=== PATIENT | female | born 1960 | race Caucasian/White ===

== ENCOUNTER 2025-07-16 07:15 | Observation (INO) | payer MEDICARE, MEDICAID ==
[2025-07-08 15:48] LABS: MEAN PLATELET VOLUME 9.4 FL (7.4-10.4); PRE OP HEMATOCRIT 40.0 % (35.0-45.0); PRE OP HEMOGLOBIN 13.2 g/dL (12.0-16.0); PRE OP PLATELET COUNT 239 X10'3 (140-440); PRE OP WHITE BLOOD COUNT 8.5 10'3 (4.8-10.8); RED CELL DISTRIBUTION WIDTH 14.3 % (11.5-14.5)
[2025-07-08 16:05] LABS: CREATININE 1.29 MG/DL (0.40-0.90); PRE OP ALT 41 U/L (30-65); PRE OP ANION GAP 6 (8-16); PRE OP AST 36 U/L (10-37); PRE OP BILIRUB, TOTAL 0.3 MG/DL (0.0-1.0); PRE OP GLUCOSE 95 MG/DL (70-104); PRE OP POTASSIUM 4.3 MMOL/L (3.4-5.1); PRE OP SODIUM 141 MMOL/L (135-145); TOTAL CARBON DIOXIDE 31.7 MMOL/L (24-32); eGFR 41 ML/MIN
[~2025-07-16] VITALS: Ht 154.9 cm; Wt 110.9 kg
[2025-07-16] VITALS (22 sets, daily range): BP systolic 106–210; BP diastolic 42–113; PULSE 50–75; RESP 12–17; TEMP 97–97.8; O2SAT 96–100
[~2025-07-16 07:15] MED LIST: ALB0.5UD NEB; BUDE10.2 INH; ERGO500093 PO; MAGN400T29 PO; METF-900 PO; MONT-47 PO; OMEP40CA21 PO; PREG150C47 PO; ROSU20TA98 PO; VALS1TAB76 PO
[2025-07-16] MEDS: ringers solution, lacted 1,000 ML IV SCH (08:09)
[2025-07-16] MEDS: VANCOMYCIN/H2O 1.5g/300mL PB 300 ML IV ONE (08:10)
[2025-07-16] MEDS: ceFAZolin 2gm/dext,iso 50mL 50 ML IV ONE (08:10)
[2025-07-16] MEDS ORDERED: ROPIVAcaine 0.5% (5mg/ml) 30ml vial ONE ×2 (09:47→11:07)
[2025-07-16] MEDS ORDERED: PCA WASTE DOCUMENTATION 1 MG ML MC SCH (10:10)
[2025-07-16] MEDS ORDERED: magnesium hydroxide 30ml (MOM) UD suspension PO PRN (10:10)
[2025-07-16] MEDS ORDERED: bisacodyl 10mg suppository rectal RC PRN (10:10)
[2025-07-16] MEDS: potassium cl 20mEq in 1/2 NS 1,000 ML IV SCH (10:10)
[2025-07-16] MEDS ORDERED: Q4H PRN IH (10:15)
[2025-07-16] MEDS ORDERED: ALBUTEROL IH (10:15)
[2025-07-16] MEDS ORDERED: MIDAZolam 1 MG/ML 5ML VIAL ONE (10:46)
[2025-07-16] MEDS ORDERED: fentaNYL/PF 50MCG/1 ML 2ML syringe ONE (10:46)
[2025-07-16] MEDS ORDERED: propofol inj 20 ML IV ONE (11:07)
[2025-07-16] MEDS ORDERED: LIDOcaine 1%/PF 5ML 10 MG/ML VIAL ONE (11:07)
[2025-07-16] MEDS ORDERED: albuterol 2.5 MG/3 ML nebule NEB PRN (11:50)
--- NOTE | 2025-07-16 12:39 | ANESTHESIA RECORDS ---
Nerve Block Providers to CC ~ Diagnosis: Nerve Block requested by: STEVE BROWN MD Neuraxial/Peripheral Nerve Block requested for Post-operative analgesia by Physician above DIAGNOSIS: Post-operative pain. (Body Area) Shoulder: [ ] Arm: [ ] Hand: [ ] Hip: [ ] Knee: [ Left ] Ankle: [ ] Foot: [ ] Leg: [ ] Abdomen: [ ] Other: [ ] Post-operative pain expected to be/is inadequately managed by oral or IV medicines. Regional anesthetic expected to facilitate rehabilitation and/or discharge from facility. Other:[ ] Procedure Performed: Femoral / Saphenous: Left Time out Done?: Yes Time of Time out: 12:55 Procedure Details: PROCEDURE DETAILS: Risks, benefits and alternatives explained Informed consent obtained, and patient wishes to proceed Conscious sedation with indicated monitors Patient positioned, pertinent anatomy defined, sterile technique used Needle used: [ ] 3 1/8 inch Stimuplex Ultra 22ga [x ] 4 inch Stimuplex Ultra 20ga [ ] 6 inch Stimuplex Ultra 20ga [ ] 6 inch, Quikbloc over the needle catheter set 20ga [ ] 4 inch Quikbloc over the needle catheter set 20ga [ ]Other: [ ] Loss of twitch @ [ N/A ]mA [x ] Single Injection [ ] Catheter Ultrasound Guidance Used: [x ] Yes [ ] No Attempts:[ once ] Medicines injected: [x ]Clonidine Amt:[ 70 mcgs ] [ x ]Dexamethasone Amt:[ 3 mgs ] [x ]Ropivacaine Amt:[ 0.5% 26 cc ] [ ]Bupivacaine Amt:[ ] [ ]Lidocaine Amt:[ ] [ ]Exparel 1.33%:[ ] [ ]Epinephrine Amt[ ] [ ]Other: [ ] Intermittent aspiration during local anesthetic administration No symptoms of intraneural or intravenous injection Patient tolerated procedure well Comments Lt Adductor Canal blk Procedure done after surgery under Spinal anesthesia. Pt supine with Lt leg rotated to Lt slightly. Easy visualization of Adductor Canal with ultra sound anterolateral to Femoral artery at the junction of upper and middle third of thigh. Able to see the tip of the needle and injected local anesthetic with the ultrasound. 5 cc of local anesthetic is injected into nerve to Vastus medialis and few cc is injected into ant femoral cutaneous nerves. No Pain or discomfort during injection. WHITNEY SANDERSON MD Jul 16, 2025 12:38
[2025-07-16] MEDS: enalaprilat 1.25mg/ml 2ml vial IV ONE (13:20)
--- NOTE | 2025-07-16 13:33 | OPERATIVE REPORT ---
Operative Report Operative Report OPERATIVE REPORT [facility] [address] [place] [address] Date of service: July 16, 2025 PREOPERATIVE DIAGNOSIS M17..16 Unilateral primary osteoarthritis, left knee POSTOPERATIVE DIAGNOSIS M17..16 Unilateral primary osteoarthritis, left knee Operation Performed 33651 Total Knee Arthro[place]: [place] [address] Computer Assisted Navigation Musculoskeletal - Imageless 39359 Remote therapeutic monitoring; device supply with scheduled recordings every 30 days. Procedure: Computer-assisted, robotically-assisted, left total knee arthroplasty. Surgeon: Dr. Gonzalez Worley Gerontology Aide: Teresita Lau PA-C Anesthesiologist: Dr. Glasgow Anesthesia: Spinal anesthetic and regional blocks Indications: 65-year-old female who has chronic osteoarthritis of the left knee with severe pain and limitation of activities despite extensive non-operative management. This patient has had extensive conservative treatment of knee joint arthritis, including rest, external joint support, anti-inflammatory medications, physical therapy, and corticosteroid injection. Physical therapy has been provided, along with a home exercise program prior to making the decision to proceed with surgical treatment. This therapeutic intervention did not provide any substantial relief of symptoms or improvement in function. The patient has been utilizing a cane, set of crutches, or walker, for more than 3 months prior to deciding to proceed with surgery. These interventions have not provided sufficient relief of pain to allow improvement in function. The patient has utilized non-steroidal anti-inflammatory medications for relief of pain over an extended period of time (more than 2 months), and has not experienced sufficient improvement in symptoms. Despite these treatments, this patient has continued difficulties with pain and limited function. They are unable to walk long distances, do vigorous activities, sit or sleep comfortably. Total knee replacement is the next reasonable step in terms of treatment. Indications for field research assistant surgeon: A second set of skilled hands with specific orthopedic knowledge of the surgical procedure and orthopedic surgical techniques was necessary to accomplish this operation successfully, and with the least amount of morbidity for the patient. This facilitated operative exposure, manipulation and handling of tissues, placement of any implants, and accomplishment of wound closure. Findings: There was indeed a very severely arthritic knee, with loss of cartilage, exposed bone, and marginal osteophytes. The medial compartment was particularly bad. A six to be varus deformity and 4 degree flexion contracture were measured preoperatively. Post operative alignment was 5 varus, and 1 degree extension. Complications: None Estimated Blood Loss: 200 mL Implants: A Nandini Persona CR total knee system was utilized with a size six left femoral component, a size C left tibial component with a smart stem, and a 32 mm patellar component. The 10 mm medial congruent left tibial insert was utilized. The Ambiq Micro robotically assisted total knee arthroplasty system and computer was utilized. Procedure: The risks, benefits, expected results, and possible complications of the planned procedure had been explained to the patient and informed consent obtained. The patient was taken to the operating room and underwent a spinal anesthetic. The patient was placed in the supine position on the operating table, and the left leg was prepped and draped in the usual fashion. A timeout was taken prior to surgery, confirming patient identification, operative side operative site, planned procedure, administration of pre-operative antibiotics, site marking, and presence of all necessary implants and instruments, x-rays and equipment. A standard anterior, slightly lateral approach was performed with a medial parapatellar arthrotomy, and a VMO split. Time was then spent removing excessive synovial tissue and exposing the medial and lateral gutters, as well as moving the anterior sections of the residual menisci. The patella was mobilized to be able to be retracted laterally. This gave exposure of the anterior aspect of the knee. Attention was then directed to the patella. An oscillating saw was utilized to make a flat cut in a freehand manner, removing approximately 9 mm of thickness. The patella was then sized and drilled for the appropriate size patella implant. Infrared arrays were then placed on the distal shaft of the femur anteriorly, and the proximal tibia medially. Utilizing the Ambiq Micro computer system, the hip, knee, and ankle were landmarked in usual fashion. The initial alignment measurements were then taken confirming the above listed deformity. Surgical planning was then carried out on the computer, confirming alignment of components, sizing, and gap balancing. Appropriate soft tissue releases were performed. The field research assistant surgeon was instrumental in maintaining exposure and tissue management and protecting vital structures. The robot was then utilized to perform all distal femoral cuts. The femur was prepared in 4 degrees of flexion and neutral coronal alignment. The robot was then utilized to cut the proximal tibia in 5 degrees of flexion and neutral mayank nal alignment. The computer was then utilized to check longitudinal alignment and soft tissue balance, and this confirmed excellent alignment. Next the dynamic balancing block was utilized to check and adjust soft tissue balancing. Finally, attention was directed to the proximal tibia. The implant was sized and properly rotated, the central drill, and the fin punch performed. Final check of alignment and balancing was then carried out, as well as final removal and cleaning up of soft tissue such as meniscal remnants and osteophytes. A tourniquet was inflated to 300 mmHg after exsanguination of the leg with an Esmarch. Cement was then mixed; 2 batches were utilized, mixed together, for the tibia, the femur and the patella. The cut surface of the tibia was thoroughly lavaged with the pulsating lavage and then dried. The tibia was impacted with the mallet, seating it quite nicely in its proper rotational alignment. Excess cement was removed from around the margins. The femoral cuts were cleaned with a pulsating lavage and then dried with the lap sponges, and the femur was impacted into position with a mallet. The patella was held firmly in place with a clamp. Excess cement was removed around the margins of the components as the cement cured. Pressure was held on the femoral component and tibia by placing a spacer and bringing the leg to full extension and applying axial and hypere xtension force. Upon complete hardening of all cement, the knee was inspected and excess cement removed. We lavaged the knee to wash out any debris and checked to make sure we had no impinging cement. The trial spacer was replaced and overall alignment c hecked with computer, ensuring we had full extension of the knee, and appropriate medial and lateral soft tissue balance, as well as flexion and extension balance. The tourniquet was deflated and hemostasis obtained with electrocautery. The wound was irrigated thoroughly one more time and then dried with lap sponges. The final tibial spacer was impacted and locked into the locking mechanism without difficulty. After final irrigation and suction of excess fluid, the knee was infiltrated with Zynrelief for postoperative pain control. The tibial and femoral navigation pins and arrays were removed. The tourniquet was then deflated, tourniquet time was 15 minutes. The wound was then closed in layers including retinacular closure, subcutaneous tissue, and skin. A sterile dressing was applied and the patient was returned to the recovery room in satisfactory condition. In the recovery area the remote monitoring station was dispensed to the patient and family. Instructions were given for its usage and ultrasound supervisor once the patient got home. We also confirmed the patient had installed the my mobility software, and we ensured that the patient was enrolled in appropriate software platform from our end. Remote monitoring was initiated at the preoperative appointment and the devices used for remote monitoring implanted and dispensed today. Electronically Signed by: Gonzalez Worley MD Doctor, Orthopedic Surgery Signed on: 07/16/2025 01:33 PM GONZALEZ WORLEY MD Jul 16, 2025 13:33
[2025-07-16] MEDS: METFORMIN 500 MG PO SCH (17:00)
[2025-07-16] MEDS: ceFAZolin/D5W- 1GM premix 50 ML IV SCH (17:58)
[2025-07-16] MEDS: oxyCODONE IR 5mg (immed. release) tablet PO PRN (18:44)
[2025-07-16] MEDS: BUDESONIDE IH SCH (20:00)
[2025-07-16] MEDS: FORMOTEROL IH SCH (20:00)
[2025-07-16] MEDS: vancomycin/NS 1 GM ADD-VANTAGE 250 ML IV SCH (23:43)
[2025-07-17 02:00] VITALS: BP 113/58; PULSE 61; RESP 16; TEMP 97.2; O2SAT 97
[2025-07-17 05:59] LABS: MEAN PLATELET VOLUME 10.2 FL (7.4-10.4); RED CELL DISTRIBUTION WIDTH 14.1 % (11.5-14.5)
[2025-07-17 06:23] LABS: TOTAL CARBON DIOXIDE 26.1 MMOL/L (24-32)
[2025-07-17 06:45] VITALS: BP 132/88; PULSE 66; RESP 15; TEMP 97.1; O2SAT 96
--- NOTE | 2025-07-17 06:54 | PROGRESS NOTE ---
Progress Note Ortho Ortho Post Op Day #: 1 Follow Up Progress Note Patient was admitted on date of surgery. She had an uneventful overnight stay with mild as she has of pain control but is now well controlled. She states that it is difficult for her to mobilize and get out of bed. She is heavily relying on a two person assist and the trapeze. She does not feel that even after working with physical therapy today she will be safe to go home. She also notes that her help at home are not be available until Tuesday evening. Plan for an additional overnight stay at this time ROS ROS No new complaints Exam Exam: Alert and Oreinted x4, Vital signs are stable, In no acute distress, Dressing clean and dry, Wound clean and dry, Distal neurovasc intact, Calves: soft bilaterally, Calves: non-tender bilat Problem/Assessment/Plan Assessment\Plan: Doing Well, Cont. Physicial Therapy Results/Orders Result Diagram: 07/17/25 0446 07/17/25 0446 ELENA STARR [facility] Jul 17, 2025 06:54
[2025-07-17] MEDS: ondansetron/PF 4mg/2ml inj IV PRN (07:08)
[2025-07-17 08:35] VITALS: RESP 15; O2SAT 96
[2025-07-17] MEDS: pantoprazole 40mg Tablet.DR PO SCH (08:36)
[2025-07-17] MEDS ORDERED: oxyCODONE IR 5mg (immed. release) tablet PO PRN (09:55)
[2025-07-17 11:40] VITALS: BP 151/58; PULSE 53; RESP 18; TEMP 97.4; O2SAT 98
[2025-07-17 12:43] VITALS: O2SAT 98
--- NOTE | 2025-07-17 13:28 | DISCHARGE SUMMARY ---
Discharge Summary Ortho CC ~ Discharge Summary *Problems/Diagnosis: (1) S/P total knee arthroplasty Status: Acute Admission Diagnosis: osteoarthritis Discharge Diagnosis\Comment: see above Operations\Procedures see above Consultants: none Complications: none Condition on DC: Stable Discharge Summary: Patient was admitted on date of surgery specified above. Admission was uneventful. Patient has cleared physical therapy and is stable for discharge home. Total Time Spent on D/C: Up to 30 Minutes Medications Home Meds: Home Medications Active Reported Magox 400 (Magnesium Oxide) 400 Mg (241.3 Mg Magnesium) Tablet 1 Tab PO DAILY Prilosec (Omeprazole) 40 Mg Capsule 1 Cap PO DAILY Rosuvastatin Calcium 20 Mg Tablet 1 Tab PO HS Proventil Nebs* (Albuterol) 2.5 Mg/0.5 Ml Vial.neb 1 Vial NEB Q4H PRN Singulair (Montelukast Sodium) 10 Mg Tablet 1 Tab PO DAILY 30 Days Symbicort 160-4.5 Mcg Inhaler (Budesonide/Formoterol Fumarate) 160 Mcg-4.5 Mcg/Actuation Hfa.aer.ad 2 Puffs INH Q12H 30 Days Metformin ER* (Metformin HCl) 500 Mg Tab.sr.24h 1 Tab PO WD Valsartan-Hctz 160-12.5 Mg Tab (Valsartan/Hydrochlorothiazide) 160 Mg-12.5 Mg Tablet 1 Tab PO DAILY Vitamin D2 (Ergocalciferol (Vitamin D2)) 1,250 Mcg (32162 Unit) Capsule 1 Cap PO Q7D Pregabalin 150 Mg Capsule 1 Cap PO BID Supervising Physician Supervising Physician: Dr. Gonzalez Worley Problem Qualifiers (1) S/P total knee arthroplasty: Qualified Codes: Z96.652 - Presence of left artificial knee joint ELENA STARR PAC Jul 17, 2025 13:28
[2025-07-20] MEDS ORDERED: ergocalciferol (vit D2) capsule 50,000 UNITS (1,250mcg) CAPSULE PO SCH (10:15)
== END 2025-07-17 14:31 | disposition home or self-care (01) ==
LOC: PAS 07:15 → PAS IN 10:14 → ORTHO 4S 14:45
PROVIDERS: ADMIT Orthopaedic Surgery; ATTEND Orthopaedic Surgery
DX: M17.12 Unilateral primary osteoarthritis, left knee (principal); I10 Essential (primary) hypertension; E11.9 Type 2 diabetes mellitus without complications; K21.9 Gastro-esophageal reflux disease without esophagitis; G47.00 Insomnia, unspecified; E66.9 Obesity, unspecified; M25.562 Pain in left knee; Z68.41 Body mass index [BMI] 40.0-44.9, adult; Z79.899 Other long term (current) drug therapy; Z98.890 Other specified postprocedural states
CPT/HCPCS: 20985; 27447; 80051; 80053; 82948; 83036; 96365; 96366; 96368; 97161; A4215; A7000; C1713; C1776; G0378; J3375; J3480; J3490; J7120; 36415; 85025; 87081; 97110; 97116; 97530; A6449; J0690; J2250; J2405; J2704; J2795; J3010; J3373

== ENCOUNTER 2025-08-24 21:30 | Emergency (ER) | payer MEDICARE, MEDICAID ==
[~2025-08-24] VITALS: Ht 154.9 cm; Wt 109.3 kg
--- NOTE | 2025-08-24 22:03 | Physician Documentation ---
History of Present Illness ~ Chief Complaint: Wound Stated Complaint: POST OP COMPLICATIONS Time Seen by MD: 21:59 OK to notify your PCP?: Yes Source: patient, RN/MD, RN notes reviewed, old records Mode of Arrival: POV Exam Limitations: no limitations HPI This patient had surgery on the left knee by Dr. Worley July 16. The patient now presents after physical therapy some increasing pain but on Tuesday it was throbbing. She then started having drainage and wound dehiscence on the lower aspect. Her wound is now red warm to touch. She denies any tobacco smoking she is nondiabetic. She has had some chills but no fevers. She is now here for evaluation and care. No recent trauma. Medication Reconciliation Allergies: Coded Allergies: oxycodone (Verified Adverse Reaction, Intermediate, GI distress, dizziness, vomiting, headache, 08/24/25) Scheduled Budesonide/Formoterol Fumarate (Symbicort 160-4.5 Mcg Inhaler), 2 PUFFS INH Q12H, (Reported) Cephalexin*Monohydrate* (Keflex*), 1 CAP PO Q8H Ergocalciferol (Vitamin D2) (Vitamin D2), 1 CAP PO Q7D, (Reported) Magnesium Oxide (Magox 400), 1 TAB PO DAILY, (Reported) Metformin Hcl* (Metformin ER*), 1 TAB PO WD, (Reported) Montelukast Sodium (Singulair), 1 TAB PO DAILY, (Reported) Omeprazole (Prilosec), 1 CAP PO DAILY, (Reported) Pregabalin (Pregabalin), 1 CAP PO BID, (Reported) Rifampin (Rifampin), 1 CAP PO Q12H Rosuvastatin Calcium (Rosuvastatin Calcium), 1 TAB PO HS, (Reported) Valsartan/Hydrochlorothiazide (Valsartan-Hctz 160-12.5 Mg Tab), 1 TAB PO DAILY, (Reported) Scheduled PRN Albuterol Sulfate Nebs* (Proventil Nebs*), 1 VIAL NEB Q4H PRN for SOB or wheezing, (Reported) Review of Systems All Other Systems at this time: Reviewed and Negative Physical Exam Vital Signs: RN Vital Signs have been reviewed: Yes, Temperature: 98.6, Source: Temporal, Heart Rate: 82, Respiratory Rate: 18, BP: 190/85, Pulse Oximetry: 98, Weight: 109.300 Physical Exam General: The patient is well developed, well nourished, nontoxic appearing and is in no acute distress. Skin: [place], warm and dry with no rashes. HEENT: Head was normocephalic and atraumatic. Eyes - pupils equal, round, reactive to light and accommodation. Extraocular movements were intact. Conjunctivae were nonicteric. The mouth and oropharynx were clear with moist mucous membranes. There were no pharyngeal exudates or erythema. Neck: Supple and nontender. There was no jugular venous distention, lymphadenopathy, thyromegaly or masses. Chest: Clear to auscultation bilaterally without wheezes, rales or rhonchi. No accessory muscle use. No dullness to percussion. Heart: Rate regular and rhythmic. S1, S2. No murmurs. Palpation of the chest wall was normal. No rubs or thrills. Abdomen: Soft, nontender and nondistended. Positive bowel sounds. No guarding or rebound. No hepatosplenomegaly or palpable masses. Extremities: No cyanosis, clubbing or edema. The patient moves all extremities. Pulses were equal and symmetric. Left knee with a large 15 cm incision with wound dehiscence approximately 5 cm. It is warm it is red there was some trace discharge as well slightly greenish in color. Neurologic: Motor sensory grossly intact Psychologic: The patient was oriented to person, place and time. The patient demonstrated appropriate judgement and insight. Progress Results/Orders Reviewed/noted all lab results: Yes Results/Orders Orders - SIGIFREDO LEON MD Culture Blood (08/24/25 22:09) Cult (Aer) Routine C&S+Gram St (08/24/25 22:09) Dressing Orders (08/24/25 22:09) Wound Care Orders (08/24/25 22:09) Knee Limited (Ap/Lat) (08/24/25 23:33) Completed Orders - SIGIFREDO LEON MD Cbc/Diff (08/24/25 22:09) MG (08/24/25 22:09) Procalcitonin (08/24/25 22:09) Vancomycin/Ns 1 Gm Add-[place] (Vancomyc (08/24/25 22:10) Ceftriaxone 2gm/D5w 50ml Bag (Rocephin 2 (08/24/25 22:10) BMP (08/24/25 22:09) Lacticsepsis (08/24/25 22:09) C-Reactive Protein (08/24/25 22:12) ESR (08/24/25 22:12) Ibuprofen Tablet (Motrin Tablet) (08/24/25 22:45) Acetaminophen 325mg Tablet (Tylenol Tabl (08/24/25 22:45) Knee Limited (Ap/Lat) (08/24/25 23:33) Rifampin Capsule (Rifampin Capsule) (08/24/25 23:45) Medications Received in ER Medications (Trade) Dose Ordered Sig/Rosalina Route PRN Reason Start Time Stop Time Status Last Admin Dose Admin Vancomycin HCl 250 ml @ 166 mls/hr ONCE ONCE IV 08/24/25 22:10 08/24/25 23:40 DC 08/24/25 22:42 166 MLS/HR Ceftriaxone Sodium/Dextrose 50 ml @ 100 mls/hr ONCE ONCE IV 08/24/25 22:10 08/24/25 22:39 DC 08/24/25 22:30 100 MLS/HR (Motrin tablet) 800 mg ONCE ONCE PO 08/24/25 22:45 08/24/25 22:46 DC 08/24/25 22:50 800 MG (Tylenol tablet) 650 mg ONCE ONCE PO 08/24/25 22:45 08/24/25 22:46 DC 08/24/25 22:51 650 MG (rifampin capsule) 600 mg ONCE ONCE PO 08/24/25 23:45 08/24/25 23:51 DC 08/25/25 00:27 600 MG Vital Signs 08/24/25 08/24/25 08/24/25 08/24/25 21:41 21:58 21:58 22:03 Temp 98.6 Pulse 82 75 Resp 18 18 16 B/P (MAP) 190/85 168/63 (98) Pulse Ox 98 99 O2 Flow Rate 0 08/24/25 08/25/25 23:45 01:05 Temp 97.9 Pulse 72 82 Resp 16 16 B/P (MAP) 155/66 (95) 166/70 (102) Pulse Ox 97 99 Laboratory Tests Test 08/24/25 22:29 White Blood Count 8.9 Red Blood Count 3.97 L Hemoglobin 11.0 L Hematocrit 33.3 L Mean Corpuscular Volume 83.8 Mean Corpuscular Hemoglobin 27.6 Mean Corpuscular Hemoglobin Concent 33.0 Red Cell Distribution Width 14.7 H Platelet Count 251 Mean Platelet Volume 9.6 Neutrophils (%) (Auto) 52.8 Lymphocytes (%) (Auto) 30.4 Monocytes (%) (Auto) 10.1 Eosinophils (%) (Auto) 6.2 H Basophils (%) (Auto) 0.5 Neutrophils # (Auto) 4.7 Lymphocytes # (Auto) 2.7 Monocytes # (Auto) 0.9 Eosinophils # (Auto) 0.5 Basophils # (Auto) 0.0 CBC Comment Erythrocyte Sedimentation Rate 44 H Sodium Level 141 Potassium Level 4.4 Chloride Level 105 Carbon Dioxide Level 27.2 Anion Gap 9 Blood Urea Nitrogen 28 H Creatinine 1.24 H Estimated GFR/1.73 m2 43 BUN/Creatinine Ratio 22.6 H Glucose Level 100 Lactic Acid Level 0.5 Calcium Level 8.7 Magnesium Level 1.9 C-Reactive Protein 0.14 Albumin 3.5 Procalcitonin < 0.05 Chemistry Comments Microbiology Date/Time Source Procedure Growth Status 08/24/25 22:39 Blood Arm Left Blood Culture - Preliminary NEGATIVE (LESS THAN 24 HOURS) Resulted Re-Evaluation Re-Evaluation : Re-Evaluation: Unchanged Progress Patient's wounds were cleaned, wound cultures obtained, laboratory work obtained, nonadhesive bandage as well as Alec bandage for support. Patient received antibiotics and will be discharged for outpatient medications and follow up with Dr. Worley. Return if high fevers or any other concerns. Patient's laboratory work was obtained sed rate is elevated at 44. Fortunately WBCs 8.9 within normal limits hemoglobin hematocrit 11 and 33 platelets 251 no left shift at this time. Chemistry shows a negative procalcitonin negative lactic acid C-reactive protein 0.14. BUN slightly elevated at 28 and creatinine slightly elevated at 1.24 otherwise within normal limits. Patient received a g of Rocephin and a g of vancomycin. X-rays were obtained did not show any air-fluid levels or signs of abscess. Continuous electronic device monitor interpretation shows normal sinus rhythm heart rate 80s, no ectopy, normal, my interpretation. Pulse oximetry monitor interpretation shows normal oxygenation 99% room air, normal, my interpretation. EKG/XRAY/CT/US/VASC/MRI Bone/Soft Tissue X-Ray (Ext.) : Additional Comment CLINICAL INDICATION: post op infection TECHNIQUE: KNEE LTDDI KNEE LIMITED (AP/LAT) Comparison: None FINDINGS/IMPRESSION: : Left total knee arthroplasty with patellar resurfacing. Position and alignment of the hardware satisfactory. No complications. Electronically Signed by:GUNNAR FRANKLIN MD Date & Time: 08/24/252352 Dictated by: GUNNAR FRANKLIN MD Dictation date and time: 08/24/252352 Medical Decision Making Additional information obtaine: old records Findings Wound dehiscence, cellulitis abscess osteomyelitis deep abscess were all considered Differential Dx:Considerations: Include: Abscess, Cellulitis, Dressing change, Healing wound, Other Departure Disposition: 01 HOME / SELF CARE / HOMELESS Impression: Primary Impression: Wound cellulitis Additional Impressions: Wound dehiscence S/P total knee arthroplasty Qualified Codes: Z96.652 - Presence of left artificial knee joint Condition: Stable Discharge Instructions: Wound Dehiscence, [id number] Referrals: NO PRIMARY CARE PROVIDER (PCP) Prescriptions Cephalexin*Monohydrate* (Keflex*) 500 Mg Capsule 1 CAP PO Q8H for 10 Days, #30 CAP Prov: SIGIFREDO LEON MD 08/24/25 Rifampin (Rifampin) 300 Mg Capsule 1 CAP PO Q12H for 5 Days, #10 CAP 0 Refills Prov: SIGIFREDO LEON MD 08/24/25 Education Educated: Patient Educated regarding: diagnosis, need for follow up, other Signature Scribe Signature: The note accurately reflects work and decisions made by me.Sigifredo Leon MD 08/24/25 23:43 Attestation: The note accurately reflects work and decisions made by me.Sigifredo Leon MD 08/24/25 23:43 SIGIFREDO LEON MD Aug 24, 2025 22:03
[2025-08-24] MEDS: CefTRIAXone 2gm/D5W 50ml BAG 50 ML IV ONE (22:30)
[2025-08-24] MEDS: vancomycin/NS 1 GM ADD-VANTAGE 250 ML IV ONE (22:42)
[2025-08-24] MEDS: ibuprofen tablet 400 MG TABLET PO ONE (22:50)
[2025-08-24 22:52] LABS: MEAN PLATELET VOLUME 9.6 FL (7.4-10.4); RED CELL DISTRIBUTION WIDTH 14.7 % (11.5-14.5)
[2025-08-24 22:56] LABS: CREATININE 1.24 MG/DL (0.40-0.90); TOTAL CARBON DIOXIDE 27.2 MMOL/L (24-32); eCRCL 33 ML/MIN; eGFR 43 ML/MIN
[2025-08-24] MEDS ORDERED: RIFA300C65 PO (23:46)
[2025-08-24] MEDS ORDERED: CEPH-585 PO (23:46)
--- NOTE | 2025-08-24 23:56 | RADIOLOGY REPORT ---
CLINICAL INDICATION: post op infection TECHNIQUE: KNEE LTDDI KNEE LIMITED (AP/LAT) Comparison: None FINDINGS/IMPRESSION: : Left total knee arthroplasty with patellar resurfacing. Position and alignment of the hardware satisfactory. No complications.
[2025-08-25 01:59] VITALS: BP 142/80; PULSE 84; RESP 16; TEMP 98; O2SAT 99
== END 2025-08-25 02:02 | disposition home or self-care (01) ==
LOC: ER 21:30
DX: T81.30XA Disruption of wound, unspecified, initial encounter (principal); L03.116 Cellulitis of left lower limb; Z88.5 Allergy status to narcotic agent; Z96.652 Presence of left artificial knee joint; Z79.899 Other long term (current) drug therapy; X58.XXXA Exposure to other specified factors, initial encounter; Y93.89 Activity, other specified; Y92.89 Other specified places as the place of occurrence of the external cause; Y99.8 Other external cause status
CPT/HCPCS: 36415; 73560; 80048; 83605; 83735; 84145; 85025; 85651; 86140; 87040; 87070; 87077; 87186; 96365; 96368; 99285; J0696; J3373; A6449